=== PATIENT | male | born 1980 | race Caucasian/White ===

== ENCOUNTER → 2018-12-02 | Outpatient (REF) ==
--- NOTE | 2018-12-03 01:55 | REP ---
Clinical: Pain and disability. Technique: AP, lateral, bilateral oblique views of the right ankle. Findings: Post traumatic arthritic changes at the ankle are appreciated including subchondral sclerosis and heterogeneity, spurring along the medial joint space, subtle irregularity to the tibial plateau/plafond. The patient is noted to be status post open reduction and fixation for bimalleolar fractures. Impression: Moderate post traumatic arthritic degenerative changes. Electronically Signed by Yuniel De La Torre MD 12/03/2018 01:46 A
--- NOTE | 2018-12-03 02:12 | REP ---
Clinical: Pain and disability. Technique: AP, lateral, coned-down views of the lumbar spine. Findings: Three views of the lumbosacral spine demonstrate satisfactory alignment and lordosis without acute fracture / compression injury or subluxation. Very minimal disc space narrowing at L5-S1 cannot be excluded. No further degenerative changes are identified by radiographic evaluation. Incidental IVC filter overlies the L2-3 vertebral bodies. Impression: Minimal disc space narrowing at L5-S1. No acute fracture / compression injury or subluxation. Electronically Signed by Yuniel De La Torre MD 12/03/2018 02:04 A
== END ==
LOC: M SMT 13:06
PROVIDERS: ATTEND Internal Medicine
DX: M19.071 Primary osteoarthritis, right ankle and foot (principal); M51.37 Other intervertebral disc degeneration, lumbosacral region